=== PATIENT | female | born 1965 | race Caucasian/White ===

== ENCOUNTER 2022-10-28 05:39 | Inpatient (IN) | payer OTHER ==
[~2022-10-28 05:39] MED LIST: Acetaminophen 500 MG Tab PO ONE; Celecoxib 200 MG Cap PO ONE; Scopolamine 1.5 MG Transdermal Patch TOP SCH
[2022-10-28] MEDS ORDERED: Dextrose 5%-Lactated Ringers 1,000 ML IV SCH (06:30)
[2022-10-28] MEDS ORDERED: Meropenem 500 MG SDV ONE (06:41)
[2022-10-28] MEDS ORDERED: Bupivacaine 0.5% 30 ML SDV ONE (06:41)
[2022-10-28] MEDS ORDERED: Lidocaine 1% with EPINEPHrine 1:100,000 50 ML MDV ONE (06:42)
[2022-10-28 06:52] LABS: ESTIMATED GFR 76 mL/min (>60)
[2022-10-28] MEDS ORDERED: Dexamethasone 4 MG/ML SDV ONE (07:02)
[2022-10-28] MEDS ORDERED: Neostigmine Methylsulfate 1 MG/ML 5 ML Syringe ONE (07:02)
[2022-10-28] MEDS ORDERED: Rocuronium 50 MG/5 ML Vial ONE (07:02)
[2022-10-28] MEDS ORDERED: Glycopyrrolate 0.2 MG/ML 5 ML MDV ONE (07:02)
[2022-10-28] MEDS ORDERED: Succinylcholine 200 MG/10 ML MDV ONE (07:02)
[2022-10-28] MEDS ORDERED: Ondansetron 4 MG/2 ML SDV ONE (07:02)
[2022-10-28] MEDS ORDERED: Propofol 200 MG/20 ML SDV ONE (07:02)
[2022-10-28] MEDS ORDERED: fentaNYL 250 MCG/5 ML SDV ONE ×2 (07:02→08:12)
[2022-10-28] MEDS ORDERED: Lactated Ringers 1,000 ML ONE (07:04)
[2022-10-28] MEDS ORDERED: cefOXitin 2 GM in Sodium Chloride 0.9% 50 ML IV ONE (07:15)
[2022-10-28] MEDS ORDERED: Ketamine 500 MG/5 ML MDV IV SCH (07:30)
[2022-10-28] MEDS ORDERED: Ropivacaine 46 ML, dexAMETHasone 8 MG, EPINEPHrine 0.4 MG, Sodium Chloride 0.9% 31.6 ML NERVRT SCH ×4 (07:30)
[2022-10-28] MEDS ORDERED: Ketamine 15 MG in Sodium Chloride 0.9% 19.85 ML IV SCH (07:30)
[2022-10-28] MEDS ORDERED: hydrOXYzine HCL 100 MG/2 ML SDV IM ONE (09:23)
[2022-10-28] MEDS ORDERED: fentaNYL 50 MCG/ML SDV IVPUSH ONE (09:23)
[2022-10-28] MEDS ORDERED: Cyclobenzaprine 10 MG Tab PO PRN (10:07)
[2022-10-28] MEDS ORDERED: Acetaminophen 500 MG Tab PO PRN (11:00)
[2022-10-28] MEDS ORDERED: HYDROmorphone 1 MG/ML Syringe IV PRN (11:00)
[2022-10-28] MEDS ORDERED: Metoclopramide 10 MG/2 ML SDV IVPUSH PRN (11:00)
[2022-10-28] MEDS ORDERED: diphenhydrAMINE 50 MG/ML SDV IVPUSH PRN (11:00)
[2022-10-28] MEDS ORDERED: HYDROmorphone 0.5 MG/0.5 ML Syringe IVPUSH PRN (11:00)
[2022-10-28] MEDS ORDERED: Ondansetron 4 MG/2 ML SDV IVPUSH PRN (11:00)
[2022-10-28] MEDS ORDERED: traMADol 50 MG Tab PO PRN (11:00)
[2022-10-28] MEDS ORDERED: Labetalol 20 MG/4 ML Syringe IVPUSH PRN (11:00)
[2022-10-28] MEDS ORDERED: hydrOXYzine HCL 100 MG/2 ML SDV IM PRN (11:00)
[2022-10-28] MEDS: Dextrose 5%-Lactated Ringers 1,000 ML IV SCH ×2 (12:34→22:41)
[2022-10-28] MEDS: cefOXitin 2 GM in Sodium Chloride 0.9% 50 ML IV SCH ×2 (13:10→19:21)
[2022-10-28] MEDS: FLUoxetine 20 MG Cap PO SCH (13:12)
[2022-10-28] MEDS: Acetaminophen 500 MG Tab PO SCH ×2 (13:12→21:24)
[2022-10-28] MEDS: oxyCODONE 5 MG Tab PO PRN ×2 (13:33→20:36)
[2022-10-28] MEDS ORDERED: Pantoprazole 40 MG Vial IVPUSH SCH (14:00)
[2022-10-28] MEDS ORDERED: MVI, Adult with Vitamin K 10 ML, Thiamine 200 MG, Zinc/Copper/Manganese/Selenium 1 ML i... IV SCH ×4 (16:00)
[2022-10-28] MEDS: Heparin Sodium 5,000 Units/ML Vial SUBCUT SCH (17:05)
[2022-10-29] MEDS: cefOXitin 2 GM in Sodium Chloride 0.9% 50 ML IV SCH ×3 (01:33→14:16)
[2022-10-29] MEDS ORDERED: Iopamidol 612 MG/ML 50 ML SDV PO STA (03:55)
[2022-10-29] MEDS: Dextrose 5%-Lactated Ringers 1,000 ML IV SCH ×2 (05:04→12:56)
[2022-10-29] MEDS: Acetaminophen 500 MG Tab PO SCH ×3 (05:25→21:01)
[2022-10-29] MEDS: Heparin Sodium 5,000 Units/ML Vial SUBCUT SCH ×2 (05:25→18:04)
[2022-10-29] MEDS ORDERED: Ondansetron 4 MG Tab.DIS PO PRN (07:36)
[2022-10-29] MEDS ORDERED: hydrOXYzine HCl 10 MG Tab PO PRN (07:37)
[2022-10-29] MEDS: Lisinopril 20 MG Tab PO SCH (08:42)
[2022-10-29] MEDS: FLUoxetine 20 MG Cap PO SCH (08:42)
[2022-10-29] MEDS: Levothyroxine 50 MCG Tab PO SCH (08:42)
[2022-10-29] MEDS: Hydrochlorothiazide 25 MG Tab PO SCH (08:43)
[2022-10-29] MEDS: SCOPOLAMINE PATCH CHECK TOP SCH (08:43)
[2022-10-29] MEDS: Celecoxib 200 MG Cap PO SCH ×2 (08:43→21:01)
[2022-10-29] MEDS ORDERED: MVI, Adult with Vitamin K 10 ML, Thiamine 200 MG, Zinc/Copper/Manganese/Selenium 1 ML i... IV SCH ×4 (16:00)
[2022-10-29] MEDS ORDERED: Pantoprazole 40 MG Tab.CR PO SCH (16:30)
[2022-10-29] MEDS: oxyCODONE 5 MG Tab PO PRN (18:59)
[2022-10-30] MEDS: Dextrose 5%-Lactated Ringers 1,000 ML IV SCH (01:09)
[2022-10-30] MEDS: Acetaminophen 500 MG Tab PO SCH (05:30)
[2022-10-30] MEDS: Heparin Sodium 5,000 Units/ML Vial SUBCUT SCH (05:30)
[2022-10-30] MEDS: Celecoxib 200 MG Cap PO SCH (08:01)
[2022-10-30] MEDS: Hydrochlorothiazide 25 MG Tab PO SCH (08:04)
[2022-10-30] MEDS: Levothyroxine 50 MCG Tab PO SCH (08:04)
[2022-10-30] MEDS: FLUoxetine 20 MG Cap PO SCH (08:04)
[2022-10-30] MEDS: SCOPOLAMINE PATCH CHECK TOP SCH (08:04)
[2022-10-30] MEDS: Lisinopril 20 MG Tab PO SCH (08:04)
[2022-10-30] MEDS ORDERED: Cyanocobalamin (Vitamin B12) 1,000 MCG/ML SDV IM ONE (09:00)
== END 2022-10-30 11:40 | disposition home or self-care (01) | DRG 621 ==
LOC: JP.SDSSCHI 05:39 → JP.MS 10:00
PROVIDERS: ADMIT Surgery; ATTEND Surgery
PROC: 0DB64Z3 Excision of Stomach, Percutaneous Endoscopic Approach, Vertical (ICD-10-PCS; principal; 2022-10-28)
PROC: 0BQT4ZZ Repair Diaphragm, Percutaneous Endoscopic Approach (ICD-10-PCS; 2022-10-28)
PROC: 0FB23ZX Excision of Left Lobe Liver, Percutaneous Approach, Diagnostic (ICD-10-PCS; 2022-10-28)
DX: E66.01 Morbid (severe) obesity due to excess calories (principal); Z68.36 Body mass index [BMI] 36.0-36.9, adult; R16.0 Hepatomegaly, not elsewhere classified; K44.9 Diaphragmatic hernia without obstruction or gangrene; F41.9 Anxiety disorder, unspecified; F32.A Depression, unspecified; I10 Essential (primary) hypertension; E03.9 Hypothyroidism, unspecified; G43.909 Migraine, unspecified, not intractable, without status migrainosus; Z85.850 Personal history of malignant neoplasm of thyroid; Z90.710 Acquired absence of both cervix and uterus; Z79.890 Hormone replacement therapy; Z79.899 Other long term (current) drug therapy
CPT/HCPCS: 36415; 74240; 80053; 83735; 83880; 84100; 84443; 85027; 86850; 86900; 86901; 93005; A9270-GY; C1713; C9113; J0171; J0330; J0694; J1100; J1644; J2020; J2185; J2405; J2704; J2710; J2795; J3010; J3410; J3411; J3420; J3490; J7120; J7121; Q9967